=== PATIENT | male | born 1965 | race Caucasian/White ===

== ENCOUNTER 2021-04-04 17:26 | Emergency (ER) | payer OTHER, SELFPAY ==
[2021-04-04 17:27] VITALS: BP 153/105; PULSE 87; RESP 20; TEMP 36.6; O2SAT 100; BMI 30.1
--- NOTE | 2021-04-04 17:36 | EDS_ITS ---
HPI History of Present Illness Chief Complaint: Upper Extremity Injury Narrative Narrative: Patient denies significant past history presents with injury to his left shoulder. He is right-hand dominant. He states that he slipped on the ice and fell backwards. He posted his left arm, and now has pain in his left shoulder. He denies hitting his head or loss of consciousness. No other injury. He now has pain worse with movement of his left shoulder. He took Tylenol prior to arrival. This happened approximately 1 hour ago. PFSH PFS Allergy/AdvReac Type Severity Reaction Status Date / Time No Known Allergies Allergy Verified 04/04/21 17:29 Social History Smoking Status: Never smoker ROS ROS ED ROS Narrative Constitutional: No fever, no chills. HEENT: No sore throat. No neck pain. No loss of vision. No rhinorrhea. Cardiovascular: No chest pain. No palpitations. No pedal edema. Respiratory: No cough, no shortness of breath. Abdominal: No abdominal pain. No nausea. No vomiting. Genitourinary: No dysuria. No hematuria. Musculoskeletal: No myalgias. Left shoulder pain and injury. Neurologic: No headaches. No dizziness. No lightheadedness. Skin: No rash. No change in color. Psychiatric: No depression. No anxiety. EXAM Physical Exam Narrative Exam Narrative: Afebrile. Vital signs noted. HEENT: Normocephalic. Atraumatic. PERRL, EOMI. Neck soft and supple. No point tenderness or step off. Cardiovascular: Regular rate and rhythm. No murmurs, rubs, or gallops appreciated. Respiratory: No tachypnea. Lungs clear to auscultation bilaterally. Gastrointestinal: Abdomen soft, nontender, with normoactive bowel sounds. No rebound or guarding. Neurological: Awake. Alert. Nonfocal, nonlateralizing. Skin: No rash. Normal color. No pallor. Musculoskeletal: No pedal edema. Diffuse tenderness to palpation left shoulder. No palpable deficit. Neurovascular intact distally. Able to flex and extend elbow. Palpable radial pulse. Range of motion left shoulder limited secondary to pain. No crepitance. No clavicular tenderness. Const Vital Signs: 04/04/21 17:27 Temperature 97.9 F Temperature Source Temporal Pulse Rate 87 Respiratory Rate 20 H Blood Pressure 153/105 H Blood Pressure Mean 121 Pulse Ox 100 Oxygen Delivery Method Room Air MDM MDM MDM Narrative Medical decision making narrative: X-rays were obtained of the left shoulder. RN did report that the patient was having mid to distal humeral pain. Hence x- rays of the humerus were also obtained. They are both negative for dislocation or fracture. Upon repeat examination, patient states he is having more pain in his proximal shoulder. I do feel he may have sprained it. He was told not to use a sling exclusively for extended periods of time as to prevent adhesive capsulitis. He will apply ice to the affected area and take [id number] analgesics as needed. Should he have pain longer than 7 to 10 days, he will follow up with his primary care physician for further evaluation and treatment. Return instructions to the emergency department were reviewed. Disposition is discharged home in stable condition. Discharge Plan Triage Chief Complaint: Upper Extremity Injury ED Provider: Paul Sotomayor Dx/Rx/DC Orders Clinical Impression: Shoulder sprain Instructions: ED Shoulder Sprain Referrals: ALKA LORENZO [Other] - 1 Week if not improving Disposition Disposition: Home, Self Care
--- NOTE | 2021-04-04 17:55 | RAD_ITS ---
INDICATION: pain EXAMINATION/TECHNIQUE: X-RAY - LEFT XR Shoulder Min 2 Views 4 VIEWS COMPARISON: None. FINDINGS: SOFT TISSUES: No soft tissue swelling or gas. No radiopaque foreign body. BONES/JOINTS: No acute fracture or subluxation.. Normal alignment. Preservation of the joint space.. No sclerotic or destructive changes observed. RAD/Shoulder min 2 Views IMPRESSION: Negative. Electronically Signed: Andrew Garcia MD at 18:44 EST ,
--- NOTE | 2021-04-04 18:03 | RAD_ITS ---
INDICATION: pAIN EXAMINATION/TECHNIQUE: X-RAY - LEFT XR Humerus Min 2 Views -4 VIEWS COMPARISON: None. FINDINGS: SOFT TISSUES: No soft tissue swelling or gas. No radiopaque foreign body. BONES/JOINTS: No acute fracture or subluxation.. Normal alignment. Preservation of the joint space.. No sclerotic or destructive changes observed. RAD/Humerus min 2 Views IMPRESSION: Negative. Electronically Signed: Andrew Garcia MD at 18:45 EST ,
== END 2021-04-04 19:27 | disposition home or self-care (01) ==
PROVIDERS: Emergency Provider Emergency Medicine; Visit Provider Emergency Medicine
DX: S43.402A Unspecified sprain of left shoulder joint, initial encounter (principal); W00.0XXA Fall on same level due to ice and snow, initial encounter; M79.629 Pain in unspecified upper arm
CPT/HCPCS: 73030; 73060; 99282